=== PATIENT | female | born 1985 | race Caucasian/White ===

== ENCOUNTER 2016-10-04 23:38 | Emergency (ER) | payer MEDICAID, OTHER ==
[2016-10-05 00:02] VITALS: BMI 29.2
[2016-10-05] MEDS ORDERED: Ciprofloxacin 0.3% OPTH SOLN OS STA (00:10)
--- NOTE | 2016-10-05 00:14 | ED PDOC ---
Arrival/HPI - General Chief Complaint: Eye Problem Time Seen by Provider: 10/04/16 23:50 Historian: Patient - History of Present Illness Narrative History of Present Illness (Text): 10/05/16 00:12 31 y/o female, no significant pmh, nkda, doesn't wear contacts, no eye surgery, doesn't wear eye glasses, last tetanus under 5 years ago, c/o lt. eye foreign body sensation x 4 hours. Pt. stated that the dust went into the left eye which she has been rubbing it, been tearing with the foreign body sensation, no headache or night sweat, no change in vision, no headache, no numbness or tingling, no other medical or psychological complaints. Past Medical History - Provider Review Nursing Documentation Reviewed: Yes - Infectious Disease Hx of Infectious Diseases: None - Tetanus Immunization Tetanus Immunization: Unknown - Past Medical History Past Medical History: No Previous - Cardiac Hx Cardiac Disorders: No - Psychiatric Hx Depression: No Hx Emotional Abuse: No Hx Physical Abuse: No Hx Substance Use: No - Anesthesia Hx Anesthesia: No - Suicidal Assessment Feels Threatened In Home Enviroment: No Family/Social History - Physician Review Nursing Documentation Reviewed: Yes Family/Social History: Unknown Family HX Smoking Status: Never Smoked Hx Alcohol Use: No Hx Substance Use: No Hx Substance Use Treatment: No Allergies/Home Meds Allergies/Adverse Reactions: Allergies No Known Allergies Allergy (Verified 05/04/13 15:44) Review of Systems - Review of Systems Constitutional: absent: Fatigue, Fevers Eyes: Other (lt. eye foreign body sensation). absent: Vision Changes ENT: absent: Hearing Changes Respiratory: absent: Cough, Sputum Cardiovascular: absent: Chest Pain Gastrointestinal: absent: Abdominal Pain, Nausea, Vomiting Neurological: absent: Headache, Dizziness, Focal Weakness, Gait Changes, Speech Changes, Facial Droop, Disequilibrium, Seizure, Other Physical Exam Vital Signs Temp Pulse Resp BP Pulse Ox 10/05/16 00:05 97.3 F L 57 L 15 126/83 100 Temperature: Afebrile Appearance: Positive for: Well-Appearing, Non-Toxic, Comfortable Pain Distress: Mild Mental Status: Positive for: Alert and Oriented X 3 - Systems Exam Head: Present: Atraumatic, Normocephalic Pupils: Present: PERRL, Other (Eyes: lt. eye w/o correction 20/20 vs. rt. eye w/ o correction 20/20, bilateral without correction 20/20, lt. eye examined with the fluorsein strip show there is ellipitcal shaped corneal abrasion on the 11 to 1 o'clock position with no foreign bodies or dendritic lesion, no visible foreign bodies on the bilteral upper and lower everted eyelids, no periorbital swelling, negative ida signs, bilateral pupils round and equal. ) Extroacular Muscles: Present: EOMI Conjunctiva: Present: Normal Mouth: Present: Moist Mucous Membranes Neck: Present: Normal Range of Motion Respiratory/Chest: Present: Clear to Auscultation, Good Air Exchange. No: Respiratory Distress, Accessory Muscle Use Cardiovascular: Present: Regular Rate and Rhythm, Normal S1, S2. No: Murmurs Abdomen: Present: Normal Bowel Sounds. No: Tenderness, Distention, Peritoneal Signs Back: Present: Normal Inspection Upper Extremity: Present: Normal Inspection. No: Cyanosis, Edema Lower Extremity: Present: Normal Inspection. No: Edema Neurological: Present: GCS=15, CN II-XII Intact, Speech Normal Skin: Present: Warm, Dry, Normal Color. No: Rashes Psychiatric: Present: Alert, Oriented x 3, Normal Insight, Normal Concentration Medical Decision Making ED Course and Treatment: 10/05/16 00:16 -eye patch -ciloxin to the lt. eye -Discharge home with ciloxin, eye patch, take tylenol for pain as needed, avoid rubbing or touching the lt. eye, follow up with your own pmd and opthalmologist within 24-48 hours, return to the ER for any new or worsening signs or symptoms. 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 Disposition/Present on Arrival - Present on Arrival Any Indicators Present on Arrival: No History of DVT/PE: No History of Uncontrolled Diabetes: No Urinary Catheter: No History of Decub. Ulcer: No History Surgical Site Infection Following: None - Disposition Have Diagnosis and Disposition been Completed?: Yes Diagnosis: Corneal abrasion Disposition Time: 00:17 Patient Plan: Discharge Condition: IMPROVED Discharge Instructions (ExitCare): Corneal Abrasion (ED) Print Language: JAPANESE Additional Instructions: Discharge home with ciloxin, eye patch, take tylenol for pain as needed, avoid rubbing or touching the lt. eye, follow up with your own pmd and opthalmologist within 24-48 hours, return to the ER for any new or worsening signs or symptoms. Prescriptions: Ciprofloxacin 0.3% [Ciloxan 0.3% Ophth SOLN] 2 drop OS Q4 #1 bottle Referrals: Frank Chino [Staff Provider] - Follow up with primary Forms: WORK NOTE
[2016-10-05 00:29] VITALS: BP 126/83; PULSE 57; TEMP 97.3
[2016-10-05 00:45] VITALS: RESP 16; O2SAT 98
== END 2016-10-05 00:40 | disposition home or self-care (01) ==
LOC: ED 23:38
DX: S05.02XA Injury of conjunctiva and corneal abrasion without foreign body, left eye, initial encounter (principal); X58.XXXA Exposure to other specified factors, initial encounter